=== PATIENT | female | born 1960 | race Caucasian/White ===

== ENCOUNTER → 2017-03-30 | Outpatient (CLI) | payer OTHER ==
[~2017-03-30] MED LIST: CARAFATE 1 GM TA1 GM PO; COZAAR 50 MG TA50 M2 PO; ERGOCALCIF50000 UNIT PO; HYDROCODONE-APA1 TA1 PO; LEVOTHYROXIN0.075 MG PO; MAXZIDE-25 MG1 EACH PO; PEPCID20 MG PO; PERCOCET PO
[2017-03-30 06:35] LABS: HEMATOCRIT 38.5 % (37.0-47.0); HEMOGLOBIN 13.5 gm/dL (12.0-15.0); MCH 31.2 pg (26.0-34.0); MCV 89.4 fL (80.0-100.0); MPV 8.7 fl. (7.2-11.1); RBC 4.31 mil/uL (4.20-5.00); WBC 5.1 thou/uL (4.0-11.0)
[2017-03-30 06:45] LABS: ALBUMIN 3.8 g/dL (3.4-5.0); ALKALINE PHOSPHATASE 115 U/L (46-116); ANION GAP 8 mmol/L (7-16); BUN 18 mg/dL (7-18); CALCIUM 8.8 mg/dL (8.5-10.1); CHLORIDE 104 mmol/L (98-107); CHOLESTEROL 194 mg/dL (<200); CO2 30 mmol/L (21-32); CREATININE 0.8 mg/dL (0.6-1.3); GLUCOSE 105 mg/dL (70-99); HDL CHOLESTEROL 45 mg/dL (>40); LDL CHOLESTEROL 131 mg/dL (<100); POTASSIUM 3.6 mmol/L (3.5-5.1); SGOT 20 U/L (15-37); SGPT 24 U/L (30-65); SODIUM 142 mmol/L (136-145); TC:HDL 4.3 Ratio (Not establshd); TOTAL BILIRUBIN 0.6 mg/dL (<0.1-1.0); TOTAL PROTEIN 7.4 g/dL (6.4-8.2); TRIGLYCERIDE 93 mg/dL (<150); VLDL 19 mg/dL (<40)
[2017-03-30 06:50] LABS: SERUM ASSESSMENT Clear
[2017-03-30 07:01] LABS: URINE BILIRUBIN NEGATIVE (Negative); URINE BLOOD 2+ (Negative); URINE CLARITY CLEAR; URINE COLOR YELLOW; URINE GLUCOSE-RANDOM NEGATIVE (Negative); URINE KETONES NEGATIVE (Negative); URINE LEUKOCYTES NEGATIVE (Negative); URINE NITRITE NEGATIVE (Negative); URINE PROTEIN NEGATIVE (Negative); URINE SPECIFIC GRAVITY 1.015 (1.005-1.030); URINE UROBILINOGEN 0.2 E.U./dl (0.2-1.0)
[2017-03-30 07:22] LABS: BACTERIA 1-9 Few /HPF (None Seen); CASTS None Seen /LPF (None Seen); CRYSTALS None Seen /LPF (None Seen); MUCUS None Seen strn/LPF (None Seen); SQUAMOUS 0-3 Few /LPF (0-3); URINE RBC 3-10 Few /HPF (0-2); URINE WBC 0-5 Rare /HPF (0-5)
== END ==
LOC: M.LAB 06:19
PROVIDERS: Family Medicine
DX: I10 Essential (primary) hypertension (principal); E03.9 Hypothyroidism, unspecified

== ENCOUNTER → 2017-05-18 | Outpatient (CLI) | payer OTHER | LOC: M.RAD 10:32 | DX: Z12.31 Encounter for screening mammogram for malignant neoplasm of breast (principal) ==

== ENCOUNTER → 2017-06-03 | Outpatient (CLI) | payer OTHER | LOC: M.ULTRA 15:45 | DX: E03.9 Hypothyroidism, unspecified (principal); R22.31 Localized swelling, mass and lump, right upper limb ==

== ENCOUNTER → 2017-07-14 | Outpatient (CLI) | payer OTHER ==
[2017-07-14 17:18] LABS: ABSOLUTE BASOPHILS 0.1 thou/uL (0.0-0.2); ABSOLUTE EOSINOPHILS 0.2 thou/uL (0.0-0.7); ABSOLUTE LYMPHOCYTES 2.3 thou/uL (0.8-5.3); ABSOLUTE MONOCYTES 0.5 thou/uL (0.0-1.2); ABSOLUTE NEUTROPHILS 3.8 thou/uL (1.6-8.1); BASOPHILS 0.8 %; EOSINOPHILS 2.7 %; HEMATOCRIT 38.6 % (37.0-47.0); HEMOGLOBIN 13.4 gm/dL (12.0-15.0); LYMPHOCYTES 33.9 %; MCH 31.7 pg (26.0-34.0); MCHC 34.8 g/dL (28.0-37.0); MONOCYTES 6.7 %; MPV 8.5 fl. (7.2-11.1); NUCLEATED RBCS 0 /100WBC; PLATELET COUNT* 256 thou/uL (150-400); POLYS 55.9 %; RBC 4.24 mil/uL (4.20-5.00); RDW-CV 12.5 % (10.5-14.5); WBC 6.8 thou/uL (4.0-11.0)
[2017-07-14 17:38] LABS: APTT 27.4 Seconds (25.0-31.3); PROTIME 9.5 Seconds (9.20-11.50)
== END ==
LOC: M.LAB 17:01
PROVIDERS: Family Medicine
DX: R58 Hemorrhage, not elsewhere classified (principal); E03.9 Hypothyroidism, unspecified; I10 Essential (primary) hypertension; E78.5 Hyperlipidemia, unspecified

== ENCOUNTER → 2017-08-19 | Outpatient (CLI) | payer OTHER ==
[2017-08-19 09:05] LABS: % SATURATION 36 % (20-39); IRON 103 ug/dL (50-175)
== END ==
LOC: M.LAB 08:01
PROVIDERS: Family Medicine
DX: F50.89 Other specified eating disorder (principal)

== ENCOUNTER 2017-08-22 22:08 | Emergency (ER) | payer OTHER ==
[~2017-08-22] VITALS: Ht 167.6 cm; Wt 99.9 kg
[~2017-08-22 22:08] MED LIST changes: -CARAFATE 1 GM TA1 GM PO; -ERGOCALCIF50000 UNIT PO; -PEPCID20 MG PO
[2017-08-22] MEDS ORDERED: ERGOCALCIF50000 UNIT PO (22:19)
[2017-08-22 22:38] LABS: ABSOLUTE BASOPHILS 0.1 thou/uL (0.0-0.2); ABSOLUTE EOSINOPHILS 0.2 thou/uL (0.0-0.7); ABSOLUTE LYMPHOCYTES 2.7 thou/uL (0.8-5.3); ABSOLUTE MONOCYTES 0.5 thou/uL (0.0-1.2); EOSINOPHILS 2.9 %; HEMATOCRIT 35.7 % (37.0-47.0); HEMOGLOBIN 12.4 gm/dL (12.0-15.0); MCH 31.8 pg (26.0-34.0); MCHC 34.8 g/dL (28.0-37.0); MCV 91.3 fL (80.0-100.0); MONOCYTES 7.5 %; MPV 8.2 fl. (7.2-11.1); NUCLEATED RBCS 0 /100WBC; PLATELET COUNT* 225 thou/uL (150-400); POLYS 46.6 %; RBC 3.91 mil/uL (4.20-5.00); RDW-CV 12.3 % (10.5-14.5); WBC 6.3 thou/uL (4.0-11.0)
[2017-08-22 22:46] LABS: ANION GAP 10 mmol/L (7-16); BUN 22 mg/dL (7-18); CHLORIDE 105 mmol/L (98-107); CO2 28 mmol/L (21-32); CREATININE 0.8 mg/dL (0.6-1.3); GLUCOSE 102 mg/dL (70-99); POTASSIUM 3.7 mmol/L (3.5-5.1); SODIUM 143 mmol/L (136-145)
[2017-08-22 22:49] LABS: PROTIME 9.8 Seconds (9.20-11.50)
[2017-08-22 22:56] LABS: ALBUMIN 3.5 g/dL (3.4-5.0); ALKALINE PHOSPHATASE 115 U/L (46-116); LIPASE 161 U/L (73-393); NT-PRO BRAIN NAT PEPTIDE 86 pg/mL (<300); SGOT 19 U/L (15-37); SGPT 28 U/L (30-65); TOTAL BILIRUBIN 0.3 mg/dL (<0.1-1.0); TOTAL PROTEIN 7.2 g/dL (6.4-8.2); TROPONIN-I LEVEL <0.06 ng/mL (<0.06)
[2017-08-22] MEDS ORDERED: CARAFATE 1 GM TA1 GM PO (23:52)
[2017-08-22] MEDS ORDERED: PEPCID20 MG PO (23:52)
[2017-08-23 00:01] VITALS: BP 138/84
--- NOTE | 2017-08-23 10:40 | EKG ---
[place] [address] ELECTROCARDIOGRAM REPORT Name: CHAYO HUI [id number] Admission: 08/22/17 Attend Phys: Discharge: 08/23/17 Date of : 60 Report #: [id number] THIS REPORT FOR: //name// [facility] ED Test Date: 2017-08-22 Test Time: 22:11:53 Pat Name: CHAYO HUI Department: Room: Gender: F Fermentologist: LEONA : 1960 Requested By: Airam Mcintosh Order Number: [id number] MD: Wilfrid Kumar Measurements Intervals [place] Rate: 81 P: 18 MO: 138 QRS: -29 QRSD: 100 T: 25 QT: 393 QTc: 457 Interpretive Statements Sinus rhythm Borderline left axis deviation Abnormal R-wave progression, late transition Compared to ECG 10/04/2012 11:34:44 Sinus bradycardia no longer present Electronically Signed On 08-23-2017 10:39:45 CDT by Wilfrid Kumar [email or web address] <ELECTRONICALLY SIGNED> By: Wilfrid Kumar MD, [facility] 08/23/17 1039 10 10 Wilfrid Kmuar MD, [facility] /EPI
== END 2017-08-23 00:01 | disposition home or self-care (01) ==
LOC: M.ERS 22:08
PROVIDERS: Emergency Medicine
DX: R07.89 Other chest pain (principal); I10 Essential (primary) hypertension; E03.9 Hypothyroidism, unspecified; Z88.1 Allergy status to other antibiotic agents; Z88.5 Allergy status to narcotic agent; Z88.8 Allergy status to other drugs, medicaments and biological substances

== ENCOUNTER → 2017-08-26 | Outpatient (CLI) | payer OTHER ==
[~2017-08-26] MED LIST changes: +CARAFATE 1 GM TA1 GM PO; +ERGOCALCIF50000 UNIT PO; +PEPCID20 MG PO
== END ==
LOC: M.ULTRA 06:45
DX: R10.11 Right upper quadrant pain (principal); E11.9 Type 2 diabetes mellitus without complications; I10 Essential (primary) hypertension; Z88.0 Allergy status to penicillin

== ENCOUNTER → 2017-09-09 | Outpatient (CLI) | payer OTHER | LOC: M.NUC 09-02 13:00 | DX: K82.9 Disease of gallbladder, unspecified (principal); R10.11 Right upper quadrant pain ==

== ENCOUNTER → 2017-09-16 | Outpatient (CLI) | payer OTHER | LOC: M.LAB 17:00 | DX: M35.00 Sjogren syndrome, unspecified (principal); I10 Essential (primary) hypertension; E03.9 Hypothyroidism, unspecified ==

== ENCOUNTER → 2017-11-12 | Outpatient (CLI) | payer OTHER | END | disposition home or self-care (01) | LOC: M.RAD 19:31 | DX: S52.121A Displaced fracture of head of right radius, initial encounter for closed fracture (principal); M19.011 Primary osteoarthritis, right shoulder; X58.XXXA Exposure to other specified factors, initial encounter; Y93.9 Activity, unspecified; Y92.89 Other specified places as the place of occurrence of the external cause; Y99.9 Unspecified external cause status ==

== ENCOUNTER → 2017-11-21 | Outpatient (CLI) | payer OTHER | LOC: M.RAD 14:42 | DX: M17.11 Unilateral primary osteoarthritis, right knee (principal); I10 Essential (primary) hypertension; E03.9 Hypothyroidism, unspecified; S52.121A Displaced fracture of head of right radius, initial encounter for closed fracture; W19.XXXA Unspecified fall, initial encounter; X58.XXXA Exposure to other specified factors, initial encounter; Y93.89 Activity, other specified; Y92.89 Other specified places as the place of occurrence of the external cause; Y99.8 Other external cause status ==

== ENCOUNTER → 2017-11-29 | Outpatient (CLI) | payer OTHER ==
[2017-11-29 13:55] LABS: HEMATOCRIT 38.9 % (37.0-47.0); HEMOGLOBIN 13.4 gm/dL (12.0-15.0); MCH 31.3 pg (26.0-34.0); MCHC 34.4 g/dL (28.0-37.0); MCV 90.9 fL (80.0-100.0); MPV 8.4 fl. (7.2-11.1); RBC 4.28 mil/uL (4.20-5.00); RDW-CV 12.3 % (10.5-14.5); WBC 9.5 thou/uL (4.0-11.0)
[2017-11-29 14:01] LABS: PROTIME 10.2 Seconds (9.20-11.50)
[2017-11-29 14:34] LABS: ALBUMIN 4.1 g/dL (3.4-5.0); CALCIUM 9.2 mg/dL (8.5-10.1); CREATININE 0.9 mg/dL (0.6-1.3); POTASSIUM 4.2 mmol/L (3.5-5.1); TOTAL BILIRUBIN 0.5 mg/dL (<0.1-1.0); TOTAL PROTEIN 7.3 g/dL (6.4-8.2)
== END ==
LOC: M.CT 13:30
PROVIDERS: Nurse Practitioner Family
DX: R10.30 Lower abdominal pain, unspecified (principal); I10 Essential (primary) hypertension; E03.9 Hypothyroidism, unspecified

== ENCOUNTER → 2017-11-30 | Outpatient (CLI) | payer OTHER | LOC: M.LAB 07:56 | DX: K92.1 Melena (principal); R10.9 Unspecified abdominal pain; I10 Essential (primary) hypertension; E03.9 Hypothyroidism, unspecified; Z88.8 Allergy status to other drugs, medicaments and biological substances ==

== ENCOUNTER → 2017-12-10 | Outpatient (CLI) | payer OTHER | LOC: M.RAD 14:10 | DX: S52.121A Displaced fracture of head of right radius, initial encounter for closed fracture (principal); X58.XXXA Exposure to other specified factors, initial encounter; Y93.89 Activity, other specified; Y92.89 Other specified places as the place of occurrence of the external cause; Y99.8 Other external cause status ==

== ENCOUNTER → 2018-02-19 | Outpatient (CLI) | payer OTHER ==
[2018-02-19 10:31] LABS: ALBUMIN 3.5 g/dL (3.4-5.0); ALKALINE PHOSPHATASE 111 U/L (46-116); ANION GAP 8 mmol/L (7-16); BUN 17 mg/dL (7-18); CALCIUM 8.7 mg/dL (8.5-10.1); CHLORIDE 103 mmol/L (98-107); CHOLESTEROL 214 mg/dL (<200); CO2 31 mmol/L (21-32); CREATININE 0.7 mg/dL (0.6-1.3); GLUCOSE 95 mg/dL (70-99); HDL CHOLESTEROL 54 mg/dL (>40); LDL CHOLESTEROL 138 mg/dL (<100); SGOT 20 U/L (15-37); SGPT 26 U/L (30-65); SODIUM 142 mmol/L (136-145); TOTAL BILIRUBIN 0.6 mg/dL (<0.1-1.0); TOTAL PROTEIN 7.3 g/dL (6.4-8.2); TRIGLYCERIDE 113 mg/dL (<150); VLDL 23 mg/dL (<40)
[2018-02-19 10:53] LABS: SERUM ASSESSMENT Clear
== END ==
LOC: M.LAB 07:35
PROVIDERS: Family Medicine
DX: I10 Essential (primary) hypertension (principal); E03.9 Hypothyroidism, unspecified

== ENCOUNTER → 2018-05-05 | Outpatient (CLI) | payer OTHER ==
[2018-05-05 11:21] LABS: URINE BILIRUBIN NEGATIVE (Negative); URINE BLOOD 1+ (Negative); URINE CLARITY CLEAR; URINE COLOR YELLOW; URINE GLUCOSE-RANDOM NEGATIVE (Negative); URINE KETONES NEGATIVE (Negative); URINE LEUKOCYTES NEGATIVE (Negative); URINE NITRITE NEGATIVE (Negative); URINE PROTEIN NEGATIVE (Negative); URINE UROBILINOGEN 0.2 E.U./dl (0.2-1.0)
[2018-05-05 11:25] LABS: ABSOLUTE BASOPHILS 0.1 thou/uL (0.0-0.2); ABSOLUTE EOSINOPHILS 0.2 thou/uL (0.0-0.7); ABSOLUTE LYMPHOCYTES 2.1 thou/uL (0.8-5.3); ABSOLUTE MONOCYTES 0.4 thou/uL (0.0-1.2); ABSOLUTE NEUTROPHILS 4.1 thou/uL (1.6-8.1); BASOPHILS 1.1 %; EOSINOPHILS 2.7 %; HEMATOCRIT 38.9 % (37.0-47.0); HEMOGLOBIN 13.6 gm/dL (12.0-15.0); LYMPHOCYTES 30.8 %; MCH 31.3 pg (26.0-34.0); MCHC 34.8 g/dL (28.0-37.0); MCV 89.9 fL (80.0-100.0); MONOCYTES 5.9 %; MPV 8.5 fl. (7.2-11.1); NUCLEATED RBCS 0 /100WBC; PLATELET COUNT* 263 thou/uL (150-400); POLYS 59.5 %; RBC 4.33 mil/uL (4.20-5.00); RDW-CV 13.2 % (10.5-14.5); WBC 6.9 thou/uL (4.0-11.0)
[2018-05-05 11:29] LABS: SQUAMOUS 0-3 Few /LPF (0-3)
[2018-05-05 11:30] LABS: BACTERIA 1-9 Few /HPF (None Seen); CASTS None Seen /LPF (None Seen); CRYSTALS None Seen /LPF (None Seen); MUCUS 0-3 Light strn/LPF (None Seen); URINE RBC 3-10 Few /HPF (0-2); URINE WBC 0-5 Rare /HPF (0-5)
[2018-05-05 11:39] LABS: ALBUMIN 4.1 g/dL (3.4-5.0); ALKALINE PHOSPHATASE 109 U/L (46-116); ANION GAP 7 mmol/L (7-16); BUN 17 mg/dL (7-18); CALCIUM 9.8 mg/dL (8.5-10.1); CHLORIDE 101 mmol/L (98-107); CHOLESTEROL 262 mg/dL (<200); CO2 31 mmol/L (21-32); CREATININE 0.9 mg/dL (0.6-1.3); GLUCOSE 99 mg/dL (70-99); HDL CHOLESTEROL 57 mg/dL (>40); LDL CHOLESTEROL 168 mg/dL (<100); POTASSIUM 3.2 mmol/L (3.5-5.1); SGOT 20 U/L (15-37); SGPT 24 U/L (30-65); SODIUM 139 mmol/L (136-145); TC:HDL 4.6 Ratio (Not establshd); TOTAL BILIRUBIN 0.7 mg/dL (<0.1-1.0); TOTAL PROTEIN 8.1 g/dL (6.4-8.2); TRIGLYCERIDE 189 mg/dL (<150); VLDL 38 mg/dL (<40)
[2018-05-05 11:42] LABS: SERUM ASSESSMENT Clear
== END ==
LOC: M.LAB 10:54
PROVIDERS: Family Medicine
DX: I10 Essential (primary) hypertension (principal); E03.9 Hypothyroidism, unspecified; Z68.37 Body mass index [BMI] 37.0-37.9, adult

== ENCOUNTER → 2018-05-09 | Outpatient (CLI) | payer OTHER | LOC: M.MRI 07:49 | DX: M19.011 Primary osteoarthritis, right shoulder (principal); M25.411 Effusion, right shoulder; M24.10 Other articular cartilage disorders, unspecified site ==

== ENCOUNTER → 2018-06-02 | Outpatient (CLI) | payer OTHER | LOC: M.RAD 10:53 | DX: Z12.31 Encounter for screening mammogram for malignant neoplasm of breast (principal) ==

== ENCOUNTER → 2018-06-13 | Outpatient (CLI) | payer OTHER ==
[2018-06-13 11:49] LABS: ABSOLUTE BASOPHILS 0.1 thou/uL (0.0-0.2); ABSOLUTE EOSINOPHILS 0.1 thou/uL (0.0-0.7); ABSOLUTE LYMPHOCYTES 1.5 thou/uL (0.8-5.3); ABSOLUTE MONOCYTES 0.4 thou/uL (0.0-1.2); ABSOLUTE NEUTROPHILS 3.5 thou/uL (1.6-8.1); EOSINOPHILS 2.1 %; HEMATOCRIT 36.5 % (37.0-47.0); HEMOGLOBIN 12.7 gm/dL (12.0-15.0); LYMPHOCYTES 27.1 %; MCH 31.6 pg (26.0-34.0); MCHC 34.8 g/dL (28.0-37.0); MCV 90.8 fL (80.0-100.0); MONOCYTES 6.5 %; MPV 8.1 fl. (7.2-11.1); NUCLEATED RBCS 0 /100WBC; PLATELET COUNT* 222 thou/uL (150-400); POLYS 63.3 %; RBC 4.02 mil/uL (4.20-5.00); RDW-CV 12.3 % (10.5-14.5); WBC 5.5 thou/uL (4.0-11.0)
[2018-06-13 12:02] LABS: ALBUMIN 3.6 g/dL (3.4-5.0); CALCIUM 9.4 mg/dL (8.5-10.1); POTASSIUM 3.6 mmol/L (3.5-5.1); TOTAL BILIRUBIN 0.7 mg/dL (<0.1-1.0); TOTAL PROTEIN 7.2 g/dL (6.4-8.2)
== END ==
LOC: M.LAB 10:45 → M.CT 11:00 → M.LAB 11:33
PROVIDERS: Family Medicine
DX: R10.9 Unspecified abdominal pain (principal); R31.29 Other microscopic hematuria; Z88.8 Allergy status to other drugs, medicaments and biological substances; Z88.5 Allergy status to narcotic agent; Z88.1 Allergy status to other antibiotic agents

== ENCOUNTER → 2018-06-22 | Outpatient (CLI) | payer OTHER | LOC: M.LAB 05:02 | DX: E87.6 Hypokalemia (principal) ==

== ENCOUNTER → 2018-07-14 | Outpatient (CLI) | payer OTHER | LOC: M.RAD 10:41 | DX: M25.761 Osteophyte, right knee (principal); M25.762 Osteophyte, left knee ==

== ENCOUNTER → 2018-08-04 | Outpatient (CLI) | payer OTHER ==
[2018-08-04 07:24] LABS: HEMATOCRIT 38.1 % (37.0-47.0); HEMOGLOBIN 13.3 gm/dL (12.0-15.0); MCH 31.2 pg (26.0-34.0); MCHC 34.9 g/dL (28.0-37.0); MCV 89.5 fL (80.0-100.0); MPV 8.2 fl. (7.2-11.1); RBC 4.26 mil/uL (4.20-5.00); RDW-CV 12.6 % (10.5-14.5); WBC 5.6 thou/uL (4.0-11.0)
== END ==
LOC: M.MRI 07:00
PROVIDERS: Family Medicine
DX: M50.122 Cervical disc disorder at C5-C6 level with radiculopathy (principal); M25.78 Osteophyte, vertebrae; M48.02 Spinal stenosis, cervical region; E03.9 Hypothyroidism, unspecified; R53.83 Other fatigue; A69.20 Lyme disease, unspecified

== ENCOUNTER → 2018-08-30 | Outpatient (CLI) | payer OTHER ==
--- NOTE | 2018-09-11 09:00 | SLEEP ---
[address] [address] SLEEP STUDY REPORT Name: CHAYO HUI [id number] Admission: 08/30/18 Attend Phys: Renetta Bustamante DO Discharge: Date of : 60 Report #: [id number] THIS REPORT FOR: //name// CC: Renetta Bustamante This study has been reviewed in its entirety by a board certified sleep specialist DATE OF SERVICE: 08/30/2018 SLEEP STUDY ATTENDING PHYSICIAN: Dr. Renetta Bustamante. The patient is 58 years old who weighs 230 pounds with a BMI of 37.1. The patient's [place] score is 18. The patient returned to [facility] for CPAP titration study. Results of the diagnostic study were not available at the time of dictation. During the night of study, the patient spent 420 minutes in bed and slept for 294 minutes with a low sleep efficiency of 70%. Sleep latency was 34 minutes with a REM latency of 130.6 minutes. Overall, sleep architecture showed normal stage 1 and stage 2 sleep, increased N3 sleep, which was 30% of the total sleep time and normal REM sleep. EKG monitoring revealed an average heart rate of 63 beats per minute. No sustained arrhythmias observed. PLMs were seen at an index of 24 per hour and 5 per hour caused EEG arousals. The patient was started on CPAP at 7 cm water and titrated up to 17 cm of water. At the final pressure, the patient slept for 149 minutes. The patient had 51 minutes of REM sleep. The patient had supine sleep as well. The patient's AHI was reduced to 2.8 per hour and oxygen saturations remained above 88% with few spot desaturations in the high 80s. IMPRESSION: 1. Sleep apnea diagnosed previously. 2. Moderate PLMs. RECOMMENDATIONS: 1. CPAP at 17 cm water completely eliminated the patient's sleep apnea and should be used on a nightly basis. 2. Follow up in 4-6 weeks to assess compliance with CPAP [place] [address] SLEEP STUDY REPORT Name: CHAYO HUI Room: [facility]#: [id number] Admission: 08/30/18 Attend Phys: Renetta Busatmante DO Discharge: Date of : 60 Report #: [id number] 3. Weight loss is strongly advised. 4. Avoid CHILLER TENDER depressants. 5. Cautioned regarding driving until symptoms of sleep apnea resolve with the use of CPAP. 6. PLMs do not need to be treated unless the patient has symptoms of restless legs during the day. <ELECTRONICALLY SIGNED> By: Chema Griffin MD 09/11/18 0900 1344 1421Adenis Griffin MD /nt
== END ==
LOC: M.SLEEPLAB 20:02
DX: G47.30 Sleep apnea, unspecified (principal)

== ENCOUNTER → 2018-11-07 | Outpatient (CLI) | payer OTHER ==
[2018-11-07 07:04] LABS: ABSOLUTE EOSINOPHILS 0.1 thou/uL (0.0-0.7); ABSOLUTE LYMPHOCYTES 1.6 thou/uL (0.8-5.3); ABSOLUTE MONOCYTES 0.3 thou/uL (0.0-1.2); ABSOLUTE NEUTROPHILS 2.9 thou/uL (1.6-8.1); BASOPHILS 0.9 %; EOSINOPHILS 2.2 %; HEMATOCRIT 36.5 % (37.0-47.0); HEMOGLOBIN 12.7 gm/dL (12.0-15.0); LYMPHOCYTES 31.9 %; MCH 31.7 pg (26.0-34.0); MCHC 34.8 g/dL (28.0-37.0); MCV 91.2 fL (80.0-100.0); MONOCYTES 6.3 %; MPV 8.3 fl. (7.2-11.1); NUCLEATED RBCS 0 /100WBC; PLATELET COUNT* 237 thou/uL (150-400); POLYS 58.7 %; RBC 4.01 mil/uL (4.20-5.00); RDW-CV 13.1 % (10.5-14.5); WBC 4.9 thou/uL (4.0-11.0)
[2018-11-07 07:11] LABS: URINE BILIRUBIN NEGATIVE (Negative); URINE BLOOD 1+ (Negative); URINE CLARITY CLEAR; URINE COLOR YELLOW; URINE GLUCOSE-RANDOM NEGATIVE (Negative); URINE KETONES NEGATIVE (Negative); URINE LEUKOCYTES NEGATIVE (Negative); URINE NITRITE NEGATIVE (Negative); URINE PROTEIN NEGATIVE (Negative); URINE UROBILINOGEN 0.2 E.U./dl (0.2-1.0)
[2018-11-07 07:17] LABS: ALBUMIN 3.8 g/dL (3.4-5.0); ALKALINE PHOSPHATASE 117 U/L (46-116); ANION GAP 7 mmol/L (7-16); BUN 10 mg/dL (7-18); CALCIUM 9.1 mg/dL (8.5-10.1); CHLORIDE 106 mmol/L (98-107); CHOLESTEROL 207 mg/dL (<200); CO2 29 mmol/L (21-32); CREATININE 0.8 mg/dL (0.6-1.3); GLUCOSE 95 mg/dL (70-99); HDL CHOLESTEROL 40 mg/dL (>40); LDL CHOLESTEROL 125 mg/dL (<100); POTASSIUM 3.7 mmol/L (3.5-5.1); SERUM ASSESSMENT Clear; SGOT 20 U/L (15-37); SGPT 28 U/L (30-65); SODIUM 142 mmol/L (136-145); TC:HDL 5.2 Ratio (Not establshd); TOTAL BILIRUBIN 0.7 mg/dL (<0.1-1.0); TOTAL PROTEIN 7.4 g/dL (6.4-8.2); TRIGLYCERIDE 212 mg/dL (<150); VLDL 42 mg/dL (<40)
[2018-11-07 07:28] LABS: BACTERIA 1-9 Few /HPF (None Seen); CASTS None Seen /LPF (None Seen); CRYSTALS None Seen /LPF (None Seen); MUCUS None Seen strn/LPF (None Seen); SQUAMOUS 0-3 Few /LPF (0-3); URINE RBC 3-10 Few /HPF (0-2); URINE WBC 0-5 Rare /HPF (0-5)
== END ==
LOC: M.LAB 05:22
PROVIDERS: Anesthesiology
DX: E87.6 Hypokalemia (principal)

== ENCOUNTER → 2019-03-23 | Outpatient (CLI) | payer OTHER ==
[2019-03-23 11:16] LABS: ABSOLUTE EOSINOPHILS 0.1 thou/uL (0.0-0.7); ABSOLUTE LYMPHOCYTES 1.7 thou/uL (0.8-5.3); ABSOLUTE MONOCYTES 0.5 thou/uL (0.0-1.2); ABSOLUTE NEUTROPHILS 4.9 thou/uL (1.6-8.1); BASOPHILS 0.5 %; EOSINOPHILS 1.4 %; HEMATOCRIT 38.4 % (37.0-47.0); HEMOGLOBIN 13.4 gm/dL (12.0-15.0); LYMPHOCYTES 23.5 %; MCV 88.7 fL (80.0-100.0); MONOCYTES 6.9 %; MPV 8.2 fl. (7.2-11.1); NUCLEATED RBCS 0 /100WBC; PLATELET COUNT* 269 thou/uL (150-400); POLYS 67.7 %; RBC 4.33 mil/uL (4.20-5.00); RDW-CV 12.7 % (10.5-14.5); WBC 7.2 thou/uL (4.0-11.0)
[2019-03-23 11:20] LABS: URINE BILIRUBIN NEGATIVE (Negative); URINE BLOOD TRACE (Negative); URINE CLARITY CLEAR; URINE COLOR YELLOW; URINE GLUCOSE-RANDOM NEGATIVE (Negative); URINE KETONES NEGATIVE (Negative); URINE LEUKOCYTES NEGATIVE (Negative); URINE NITRITE NEGATIVE (Negative); URINE PROTEIN NEGATIVE (Negative); URINE UROBILINOGEN 0.2 E.U./dl (0.2-1.0)
[2019-03-23 11:31] LABS: ALKALINE PHOSPHATASE 131 U/L (46-116); ANION GAP 8 mmol/L (7-16); BUN 22 mg/dL (7-18); CALCIUM 9.3 mg/dL (8.5-10.1); CHLORIDE 104 mmol/L (98-107); CHOLESTEROL 236 mg/dL (<200); CO2 30 mmol/L (21-32); CREATININE 0.9 mg/dL (0.6-1.3); GLUCOSE 90 mg/dL (70-99); HDL CHOLESTEROL 51 mg/dL (>40); LDL CHOLESTEROL 161 mg/dL (<100); POTASSIUM 3.8 mmol/L (3.5-5.1); SERUM ASSESSMENT Clear; SGOT 20 U/L (15-37); SGPT 47 U/L (30-65); SODIUM 142 mmol/L (136-145); TC:HDL 4.6 Ratio (Not establshd); TOTAL BILIRUBIN 0.9 mg/dL (<0.1-1.0); TOTAL PROTEIN 7.9 g/dL (6.4-8.2); TRIGLYCERIDE 123 mg/dL (<150); VLDL 25 mg/dL (<40)
== END ==
LOC: M.RAD 03-10 15:52
PROVIDERS: Family Medicine
DX: N91.2 Amenorrhea, unspecified (principal); I10 Essential (primary) hypertension; E03.9 Hypothyroidism, unspecified; Z78.0 Asymptomatic menopausal state

== ENCOUNTER → 2019-03-30 | Outpatient (CLI) | payer OTHER | LOC: M.RAD 09:44 | DX: M47.812 Spondylosis without myelopathy or radiculopathy, cervical region (principal); M85.88 Other specified disorders of bone density and structure, other site; Z88.8 Allergy status to other drugs, medicaments and biological substances ==

== ENCOUNTER → 2019-05-11 | Outpatient (CLI) | payer OTHER | LOC: M.LAB 09:21 | DX: E66.09 Other obesity due to excess calories (principal); Z68.34 Body mass index [BMI] 34.0-34.9, adult ==

== ENCOUNTER → 2019-07-25 | Outpatient (CLI) | payer OTHER | LOC: M.RAD 12:39 | DX: Z12.31 Encounter for screening mammogram for malignant neoplasm of breast (principal) ==

== ENCOUNTER → 2019-08-14 | Outpatient (CLI) | payer OTHER ==
[~2019-08-14] MED LIST changes: +DIAZEPAM 5 MG5 M1 PO; +LORCET 5-325 M1 EACH PO; +NORVASC 2.5 MG2.5 M1 PO; +OMEPRAZOLE 20 M20 M1 PO
[2019-08-14 09:03] LABS: ABSOLUTE EOSINOPHILS 0.1 thou/uL (0.0-0.7); ABSOLUTE LYMPHOCYTES 1.4 thou/uL (0.8-5.3); ABSOLUTE MONOCYTES 0.3 thou/uL (0.0-1.2); ABSOLUTE NEUTROPHILS 2.9 thou/uL (1.6-8.1); BASOPHILS 0.9 %; EOSINOPHILS 2.2 %; HEMATOCRIT 38.5 % (37.0-47.0); HEMOGLOBIN 13.7 gm/dL (12.0-15.0); LYMPHOCYTES 29.7 %; MCH 31.9 pg (26.0-34.0); MCHC 35.6 g/dL (28.0-37.0); MCV 89.6 fL (80.0-100.0); MONOCYTES 6.8 %; MPV 8.2 fl. (7.2-11.1); NUCLEATED RBCS 0 /100WBC; PLATELET COUNT* 229 thou/uL (150-400); POLYS 60.4 %; RBC 4.29 mil/uL (4.20-5.00); RDW-CV 12.5 % (10.5-14.5); WBC 4.8 thou/uL (4.0-11.0)
[2019-08-14 09:11] LABS: ALBUMIN 3.6 g/dL (3.4-5.0); ALKALINE PHOSPHATASE 114 U/L (46-116); ANION GAP 8 mmol/L (7-16); BUN 17 mg/dL (7-18); CALCIUM 8.9 mg/dL (8.5-10.1); CHLORIDE 105 mmol/L (98-107); CHOLESTEROL 221 mg/dL (<200); CO2 29 mmol/L (21-32); CREATININE 0.9 mg/dL (0.6-1.3); GLUCOSE 98 mg/dL (70-99); HDL CHOLESTEROL 56 mg/dL (>40); LDL CHOLESTEROL 146 mg/dL (<100); POTASSIUM 3.9 mmol/L (3.5-5.1); SGOT 22 U/L (15-37); SGPT 35 U/L (30-65); SODIUM 142 mmol/L (136-145); TC:HDL 3.9 Ratio (Not establshd); TOTAL BILIRUBIN 0.7 mg/dL (<0.1-1.0); TOTAL PROTEIN 7.5 g/dL (6.4-8.2); TRIGLYCERIDE 95 mg/dL (<150); VLDL 19 mg/dL (<40)
[2019-08-14 09:13] LABS: SERUM ASSESSMENT Clear
[2019-08-14 09:20] LABS: URINE BILIRUBIN NEGATIVE (Negative); URINE BLOOD TRACE (Negative); URINE CLARITY CLEAR; URINE COLOR YELLOW; URINE GLUCOSE-RANDOM NEGATIVE (Negative); URINE KETONES NEGATIVE (Negative); URINE LEUKOCYTES NEGATIVE (Negative); URINE NITRITE NEGATIVE (Negative); URINE PROTEIN NEGATIVE (Negative); URINE SPECIFIC GRAVITY 1.015 (1.005-1.030); URINE UROBILINOGEN 0.2 E.U./dl (0.2-1.0)
== END ==
LOC: M.LAB 08:23
PROVIDERS: ATTEND Orthopaedic Surgery
DX: Z11.59 Encounter for screening for other viral diseases (principal); E87.6 Hypokalemia; I10 Essential (primary) hypertension; E03.9 Hypothyroidism, unspecified

== ENCOUNTER 2019-09-07 22:22 | Inpatient (IN) | payer OTHER ==
[~2019-09-07] VITALS: Ht 167.6 cm; Wt 104.3 kg
[~2019-09-07 22:22] MED LIST changes: -COZAAR 50 MG TA50 M2 PO; +COZAAR 50 MG TA50 MG PO; -DIAZEPAM 5 MG5 M1 PO; -LEVOTHYROXIN0.075 MG PO; -LORCET 5-325 M1 EACH PO; -NORVASC 2.5 MG2.5 M1 PO; -OMEPRAZOLE 20 M20 M1 PO; +SYNTHROID75 MCG PO
[2019-09-07 22:26] VITALS: BP 162/132
[2019-09-07] MEDS ORDERED: OMEPRAZOLE 20 M20 M1 PO (22:33)
[2019-09-07] MEDS ORDERED: NORVASC 2.5 MG2.5 M1 PO (22:34)
[2019-09-07] MEDS ORDERED: LORCET 5-325 M1 EACH PO (22:36)
[2019-09-07] MEDS ORDERED: DIAZEPAM 5 MG5 M1 PO (22:37)
[2019-09-07 22:49] LABS: HEMATOCRIT 36.7 % (37.0-47.0); HEMOGLOBIN 12.9 gm/dL (12.0-15.0); MCH 31.7 pg (26.0-34.0); MCHC 35.1 g/dL (28.0-37.0); MCV 90.2 fL (80.0-100.0); MPV 8.1 fl. (7.2-11.1); NUCLEATED RBCS 0 /100WBC; PLATELET COUNT* 276 thou/uL (150-400); RBC 4.07 mil/uL (4.20-5.00); WBC 15.4 thou/uL (4.0-11.0)
[2019-09-07 22:56] LABS: CALCIUM 8.1 mg/dL (8.5-10.1); CREATININE 1.1 mg/dL (0.6-1.3); POTASSIUM 3.4 mmol/L (3.5-5.1)
[2019-09-07 23:00] LABS: ALBUMIN 3.8 g/dL (3.4-5.0); TOTAL BILIRUBIN 0.7 mg/dL (<0.1-1.0); TOTAL PROTEIN 7.3 g/dL (6.4-8.2)
[2019-09-07 23:14] LABS: ABSOLUTE EOSINOPHILS 0.2 thou/uL (0.0-0.7); ABSOLUTE LYMPHOCYTES 1.4 thou/uL (0.8-5.3); ABSOLUTE MONOCYTES 0.6 thou/uL (0.0-1.2); ABSOLUTE NEUTROPHILS 13.2 thou/uL (1.6-8.1); PLATELET ESTIMATE ADEQUATE
[2019-09-08 02:16] LABS: BF RBC 7614 /mm3; TOTAL CELL COUNT 53822 /mm3
[2019-09-08 02:19] LABS: CLARITY HAZY; TOTAL VOLUME 20 ml
[2019-09-08 02:20] LABS: SOURCE SYNOVIAL
[2019-09-08 02:25] VITALS: BP 132/67
[2019-09-08 02:26] VITALS: BP 137/67
[2019-09-08 03:36] LABS: BF LYMPHOCYTES 2 %; BF MONOCYTES 5 %; BF POLYS 93 %
--- NOTE | 2019-09-08 05:14 | NUR ---
PT FROM ER 0220. ELEVATED RIGHT LEG AND REPOSITIONED PATIENT FOR COMFORT. PICTURE OF KNEE IN CHART. SHE HAS ZELAYA DUE TO IMMOBILITY. SHE STATES SHE WAS ABLE TO GET UP AND MOVE AROUND THE DAY BEFORE. NOW SHE IS NOT ABLE TO WALK WITHOUT SEVERE PAIN. ALERT AND ORIENTED. HOURLY ROUNDS MADE PATIENT IS SLEEPING WELL AND COMFORTABLE. DR MORAES CONSULTED FOR AM. WILL CONTINUE TO FOLLOW PLAN OF CARE.
[2019-09-08 08:00] VITALS: BP 139/70
--- NOTE | 2019-09-08 13:14 | CON ---
[address] [address] CONSULTATION Name: EZCHAYO Sara Room: [address] IN M.R.#: [id number] Admission: 09/08/19 Attend Phys: Chuck Crooks Discharge: Date of : 60 Report #: [id number] THIS REPORT FOR: //name// cc: Rodrigo Andujar Steve T. DO ~ THIS REPORT FOR: //name// CC: Chuck Campbell DATE OF SERVICE: 09/08/2019 INFECTIOUS DISEASE CONSULTATION ATTENDING PHYSICIAN: Chuck Matias MD REASON FOR EVALUATION: Right knee septic arthritis. HISTORY OF PRESENT ILLNESS: Chart reviewed, patient examined. This is a 59-year-old woman with known history of hypertension, hypothyroidism and osteoarthritis, who underwent a right knee arthroscopic procedure on 08/16, generally had been doing fairly well, although it continues to drain throughout the course of the postoperative period. Over the course of the last 24 hours prior to admission, had increasing drainage with purulence, severe pain associated with it became impossible to ambulate or even move her leg. She denies any systemic illness. No fevers or chills, although did have some tremulousness and sweats. She felt attributed to the pain. Denied any anorexia. No pulmonary or gastrointestinal related complaints. She was evaluated initially, placed Steri-Strips on the draining site, treated with cephalexin for which she took 2 doses; however, it continued to worsen. She was reevaluated and subsequently admitted. She is seen preop, pending I and D, did have aspiration of the sites with 53,822 white cells, 93% polys. COVID testing was negative. Lactic acid was 2.2. Blood cultures sterile thus far. ALLERGIES: CODEINE, ERYTHROMYCIN, CLARITHROMYCIN, DAYPRO, DULOXETINE, PREGABALIN. CURRENT MEDICATIONS: Include ergocalciferol, levothyroxine, enoxaparin, vancomycin, amlodipine, losartan, triamterene and hydrochlorothiazide combination, famotidine, ceftriaxone, diazepam, pantoprazole, p.r.n. analgesics and antiemetics. PAST MEDICAL HISTORY: As described above, hypertension, history of hypothyroidism, osteoarthritis. SOCIAL HISTORY: Former smoker. No ethanol. [place] [address] CONSULTATION Name: CHAYO HUI Room: [address]#: [id number] Admission: 09/08/19 Attend Phys: Chuck sethi Beresford Discharge: Date of : 60 Report #: [id number] FAMILY HISTORY: Noncontributory. REVIEW OF SYSTEMS: Otherwise, unremarkable 10-point review of systems. PHYSICAL EXAMINATION: GENERAL: She is in moderate distress secondary to the knee pain. She is generally lucid, reasonably well nourished. VITAL SIGNS: Temperature 98.4, pulse 83, respirations 18, blood pressure 139/70. SKIN: Warm, dry, no rashes. HEENT: Normocephalic. Extraocular muscles intact. NECK: Supple. LUNGS: Generally clear to auscultation bilaterally. HEART: Regular. Borderline tachycardic. I do not appreciate a murmur. ABDOMEN: Soft, nontender, nondistended. EXTREMITIES: Right knee was exposed. There is moderate to marked inflammatory changes. Any manipulation to all, there is light touch causes significant pain. GENITOURINARY: Deferred. RECTAL: Deferred. LABORATORY DATA: Blood cultures sterile thus far. CBC: White count of 15.4, H 12.9 and 36.7, platelets of 276 and 30% bands. Electrolytes: Sodium 140, potassium 3.4, chloride 104, bicarb is 25, anion gap of 11, BUN and creatinine 26 and 1.1, glucose of 165. Albumin 3, total protein 7.3. LFTs unremarkable. ASSESSMENT AND PLAN: Right knee septic arthritis. This seems to be postoperative issues subsequent to her arthroscopic procedure. Certainly would expect skin related sue with chronic draining aspect of the wound. Agree with coverage for Staphylococcus and Streptococcus primarily, see how she does clinically postop, await culture results. We will add incentive spirometry as well. We will follow. <ELECTRONICALLY SIGNED> By: Samuel Jackson MD 09/08/19 1314 1027 1046Joananth Jackson MD /nt
--- NOTE | 2019-09-08 16:00 | NUR ---
SPOKE WITH PT. SHE WAS ALERT AND ORIENTED. STATED SHE LIVES WITH HER . HE IS DISABLED BUT CAN HELP HER NEEDED. THEY ALSO TAKE CARE OF HIS 92 YO DAD WHO LIVES WITH THEM. 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. STARTED HAVING SEVERE PAIN IN R KNEE 09/06. WENT TO SURGERY TODAY FOR I&D. CULTURES ARE PENDING. SHE UNDERSTANDS RESULTS OF CX WILL DETERMINE ANTIBIOTICS AT DISCHARGE. NO USE OF DME AT HOME OR HX OF HH. SHE SAID KNEE FEELS MUCH BETTER AFTER SURGERY. CM WILL FOLLOW.
--- NOTE | 2019-09-08 17:53 | NUR ---
ASSUMED CARE OF PATIENT AT APPROX 1245. ALERT AND ORIENTED X4. VSS ON 2 LITERS 02. MINIMAL COMPLAINT OF PAIN MANAGED WITH ORAL NORCO. FLUIDS AND ANTIBIOTICS INFUSED ORDERED. NO OTHER COMPLAINTS THIS SHIFT. FALL PRECAUTIONS IN PLACE. CALL LIGHT WITHIN REACH. WILL CONTINUE WITH PLAN OF CARE.
[2019-09-08 19:00] VITALS: BP 133/64
[2019-09-08 20:12] VITALS: BP 98/58
[2019-09-09] VITALS: BP 104/60
[2019-09-09 04:00] VITALS: BP 109/64
[2019-09-09 04:11] LABS: HEMOGLOBIN 11.8 gm/dL (12.0-15.0); MCH 32.7 pg (26.0-34.0); MCHC 35.9 g/dL (28.0-37.0); MCV 91.1 fL (80.0-100.0); MPV 8.7 fl. (7.2-11.1); RBC 3.62 mil/uL (4.20-5.00); RDW-CV 12.8 % (10.5-14.5); WBC 8.4 thou/uL (4.0-11.0)
[2019-09-09 04:28] LABS: ALBUMIN 2.8 g/dL (3.4-5.0); CALCIUM 7.9 mg/dL (8.5-10.1); CREATININE 0.8 mg/dL (0.6-1.3); MAGNESIUM 1.7 mg/dL (1.8-2.4); POTASSIUM 3.4 mmol/L (3.5-5.1); TOTAL BILIRUBIN 0.6 mg/dL (<0.1-1.0); TOTAL PROTEIN 6.3 g/dL (6.4-8.2)
--- NOTE | 2019-09-09 05:17 | NUR ---
PAIN WELL MANAGED THIS SHIFT. SHE DID NOT REPORT ANY NEW WORSENING PAIN. CPAP DURING SLEEP AND 2L O2 OTHERWISE. ALERT AND ORIENTED. ZELAYA OUTPUT CLEAR AND YELLOW. TOLERATING FLUIDS AND DIET. RECEIVED ALL MEDS AND ABX SCHEDULED. SHE DID NOT REQUEST ANY ADDITIONAL PAIN MEDICATION. WILL CONTINUE TO FOLLOW PLAN OF CARE.
[2019-09-09 08:30] VITALS: BP 120/68
[2019-09-09 12:14] VITALS: BP 124/53
[2019-09-09 15:46] VITALS: BP 110/61
--- NOTE | 2019-09-09 16:52 | NUR ---
PATIENT ALERT AND ORIENTED X 4. VITAL SIGNS STABLE ON 2L NASAL CANULA. AFEBRILE. UP WITH ASSISTANCE, GAIT BELT, AND WALKER TO THE BATHROOM. IV PATENT AND SALINE LOCKED. PAIN BEING MANAGED WITH PO MEDICATION. DENIES NAUSEA AT THIS TIME. DRESSING TO RIGHT KNEE CLEAN, DRY, INTACT. HEMOVAC DRAIN IN PLACE AND DRAINING. FALL PRECAUTIONS IN PLACE AND BED ALARM ON. HOURLY ROUNDS MAINTAINED THROUGHOUT THE SHIFT. CALL LIGHT WITHIN REACH. NURSING WILL CONTINUE TO MONITOR.
[2019-09-09 18:06] LABS: BODY FLUID PROTEIN 3.4 g/dL (())
[2019-09-09 20:00] VITALS: BP 115/60
[2019-09-10] VITALS (8 sets, daily range): BP systolic 97–140; BP diastolic 42–63
[2019-09-10 04:08] LABS: HEMATOCRIT 31.8 % (37.0-47.0); HEMOGLOBIN 11.4 gm/dL (12.0-15.0); MCH 32.5 pg (26.0-34.0); MCHC 35.9 g/dL (28.0-37.0); MCV 90.6 fL (80.0-100.0); MPV 8.9 fl. (7.2-11.1); RBC 3.51 mil/uL (4.20-5.00); RDW-CV 12.9 % (10.5-14.5)
[2019-09-10 04:16] LABS: CALCIUM 8.2 mg/dL (8.5-10.1); CREATININE 0.9 mg/dL (0.6-1.3); MAGNESIUM 1.9 mg/dL (1.8-2.4); POTASSIUM 3.5 mmol/L (3.5-5.1)
--- NOTE | 2019-09-10 06:42 | NUR ---
Alert and oriented x 4. Acewrap dressing to rt knee dry and intact with hemovac in place. She has had pain med through the night, pain has been at 8 most of the night. She is up with stand by assist to the bathroom. She has slept intermitten;y
--- NOTE | 2019-09-10 11:50 | NUR ---
PATIENT ARRIVED BACK TO UNIT FROM PACU AT 1140. ALERT AND ORIENTED X 4. VITAL SIGNS STABLE ON 2L O2 NASAL CANULA. IV PATENT AND SALINE LOCKED. IV ANTIBIOTIC GIVEN IN PACU. DRESSING TO RIGHT KNEE CLEAN, DRY, INTACT. FALL PRECAUTIONS IN PLACE AND BED ALARM ON. NURSING WILL CONTINUE TO MONITOR.
[2019-09-10 14:20] LABS: SOURCE KNEE JOINT
--- NOTE | 2019-09-10 16:18 | OP ---
[address] [address] OPERATIVE REPORT Name: CHAYO HUI Room: [address] IN .R.#: [id number] Admission: 09/08/19 Attend Phys: Chuck Crooks Discharge: Date of : 60 Report #: [id number] THIS REPORT FOR: //name// cc: Rodrigo Andujar Steve T. DO ~ THIS REPORT FOR: //name// CC: Chuck Campbell DICTATED BY: Candido Biggs DO DATE OF SERVICE: 09/08/2019 PREOPERATIVE DIAGNOSIS: Septic arthritis, right knee. POSTOPERATIVE DIAGNOSIS: Septic arthritis, right knee. PROCEDURE PERFORMED: Right knee arthroscopic lavage and three compartment synovectomy. SURGEON: Cholo Hector DO SCALE BALANCER: Candido Biggs DO and Ravindra Tracey DO ANESTHESIA: General. ESTIMATED BLOOD LOSS: 15 mL. SPECIMENS: Synovial tissue for culture. DRAINS: One medium Hemovac. COMPLICATIONS: None. DISPOSITION: Stable to PACU. 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 She did present to the Emergency Department yesterday evening with increased pain and drainage from the knee. She was unable to bear weight. The knee was aspirated in the Emergency Department. Synovial fluid analysis consistent with septic arthritis of the right knee. Right knee arthroscopic irrigation and debridement was recommended for the patient. The risks, benefits, alternatives, complications were discussed and [place] [address] OPERATIVE REPORT Name: CHAYO HUI Room: [address] IN M.R.#: [id number] Admission: 09/08/19 Attend Phys: Chuck Crooks Discharge: Date of : 60 Report #: [id number] DESCRIPTION OF PROCEDURE: The patient was seen and examined in the preoperative holding area. The correct upper extremity was marked. Written consent was obtained. The patient was transferred to the operating room and placed supine on the operating table. She was given the benefit of general anesthesia. Right lower extremity was prepped and draped in the usual sterile fashion. Timeout was performed to verify the correct patient, procedure, and all were in agreement. Next, the previous arthroscopic portals were recreated and the arthroscope was inserted. The superolateral portal, that was previously used, was also recreated and a trocar was inserted. There was noted to be cass purulence from the knee joint itself upon introduction of the cannula. This fluid was sent for culture. A synovium tissue biopsy was taken also for culture. Next, the knee was thoroughly irrigated. There was noted to be 3 compartment synovitis and a synovectomy was performed with the arthroscopic shaver. Next, a medium Hemovac drain was placed through the superolateral portal. This was sewn into position. The knee was then drained of all fluid. Arthroscopic instruments were removed. The remaining portals were closed with nylon sutures in simple interrupted fashion. Sterile dressing was applied. The patient was then awakened from anesthesia and transferred to the PACU in stable condition. The patient tolerated the procedure well and no complications. <ELECTRONICALLY SIGNED> By: Cholo Hector DO 09/10/19 1618 1013 [id number] Hector DO /nt
--- NOTE | 2019-09-10 16:20 | OP ---
[address] [address] OPERATIVE REPORT Name: EZCHAYO F Room: [address] IN .R.#: [id number] Admission: 09/08/19 Attend Phys: Chuck Crooks Discharge: Date of : 60 Report #: [id number] THIS REPORT FOR: //name// cc: Rodrigo Andujar Steve T. DO THIS REPORT FOR: //name// CC: Chuck Campbell DICTATED BY: Michael Lovett DO DATE OF SERVICE: 09/10/2019 PREOPERATIVE DIAGNOSIS: Right knee septic arthritis. POSTOPERATIVE DIAGNOSIS: Right knee septic arthritis. PROCEDURE PERFORMED: Right knee arthroscopic irrigation and debridement with 3 compartments synovectomy. SURGEON: Wilfrid Cruz D.O. ASSISTANTS: 1. Vern Luong, PGY2. 2. Michael Lovett, PGY4. 3. Michael Esparza, PGY1. ANESTHESIA: General endotracheal. ESTIMATED BLOOD LOSS: 5 mL. COMPLICATIONS: None. CONDITION OF PATIENT: Stable to PACU. INTRAOPERATIVE FINDINGS: Upon entrance of the knee, no cass purulence was encountered. There was diffuse synovitis and coagulated blood, but no necrotic tissue or concerning signs for persistent infection. INDICATIONS FOR PROCEDURE: The patient is a pleasant 59-year-old female who had undergone a right knee arthroscopy by Dr. Sewell several weeks ago. She was doing well until a few days prior to her admission last week. Aspiration yielded a concern for septic arthritis. She underwent arthroscopic I and D by Dr. Hector on the . Given the cass purulence encountered in the joint, recommendation was made for repeat arthroscopic [place] [address] OPERATIVE REPORT Name: CHAYO HUI Room: [address] IN M.R.#: [id number] Admission: 09/08/19 Attend Phys: Chuck Crooks Discharge: Date of : 60 Report #: [id number] elected to undergo that procedure today. We again revisited the risks, complications, alternatives, risks including but not limited to damage to neurovascular structures, chondral damage from the infection, continuation of pain, dissemination of infection, continuation of infection, possible need for repeat surgery in the future and any other imponderables secondary to being taken back to the operative suite. She expressed understanding and wished to proceed. DESCRIPTION OF PROCEDURE: The patient was met in the preoperative bay where the correct site was marked. She was then taken back to the operative suite and placed in supine position on a well-padded table. She was given the benefit of general anesthesia. Right lower extremity was sterilely prepped and draped in normal standard fashion after being placed into a well-padded arthroscopic leg dong. The patient did have a pneumatic tourniquet applied to the right thigh that was ultimately not used through the duration of this procedure. Timeout was performed, which correct patient, side, site, procedure to be performed, and continued antibiotics in the forms of perioperative vancomycin was confirmed and agreed upon by all participation. The previous arthroscopic portals and super medial Hemovac site sutures were removed prior to the prep. The lateral portal was entered with the superomedial fluid inflow having been established. Diagnostic portion was begun. There was no cass purulence encountered through any of the trocar insertions or direct visualization of the knee. We did encounter diffuse synovitis and coagulated blood. No necrotic tissue or concerning signs for persistent infection was noted. A 3 compartments synovectomy was performed. The knee was lavaged with approximately 6 liters of normal saline. All instrument counts and sponge and needle counts were correct. All instruments were removed from the knee. The Hemovac drain was placed in the superomedial aspect of the knee. This was reapproximated with vertical mattress sutures. The portals were then reapproximated with simple interrupteds. The drain was not sewn into place. A sterile dressing with Xeroform, 4 x 4's, Kerlix, and a compressive ____ was applied. The patient was awoken from general anesthesia and taken to postanesthesia care unit in stable condition. Do not anticipate on the need for a repeat procedure to this individual's knee. We will certainly monitor her closely, but it is our hope with the arthroscopic I and D x 2 thus far coupled with her Infectious Disease management with her antibiotics, this will continue to improve clinically, but we will be monitoring closely. <ELECTRONICALLY SIGNED> By: Cholo Hector DO 09/10/19 1620 1022 [id number] Cruz DO /layne
--- NOTE | 2019-09-10 18:02 | NUR ---
PATIENT ALERT AND ORIENTED X 4. VITAL SIGNS STABLE ON 2L O2 NASAL CANULA. AFEBRILE. UP WITH ASSISTANCE TO THE BATHROOM WITH GAIT BELT AND WALKER. IV PATENT WITH ANTIBIOTIC INFUSING. PAIN BEING MANAGED WITH PO MEDICATION. DENIES NAUSEA AT THIS TIME. BULKY DRESSING IN PLACE TO RIGHT KNEE CLEAN, DRY, AND INTACT. HEMOVAC IN PLACE WITH MINIMAL TO NO DRAINAGE. FALL PRECAUTIONS IN PLACE AND BED ALARM ON. HOURLY ROUNDS MAINTAINED THROUGHOUT THE SHIFT. CALL LIGHT WITHIN REACH. NURSING WILL CONTINUE TO MONITOR.
[2019-09-11] VITALS: BP 101/60
[2019-09-11 04:00] VITALS: BP 108/56
--- NOTE | 2019-09-11 07:33 | NUR ---
Alert and oriented x 4. Rt knee acewrap dressing is dry and intact with hemovac in place. There hasn't been any drainage from it. Vitals have been stable. She has had cont pulse ox and been on roomair air O2 sat 95-99% on roomair she does use Cpap at night. She had pain meds at bedtime and this am. She up with stand by assist and walker to the bathroom. She slept well.
[2019-09-11 08:15] VITALS: BP 125/72
--- NOTE | 2019-09-11 10:35 | NUR ---
RIGHT BASILIC VESSEL ACCESSED FOR 4 [place] SINGLE LUMEN POWER PICC. LINE PRE-TRIMMED TO 41 CM AND ADVANCED TO THE ZERO DERRELL WITH NO RESISTANCE MET. UPPER ARM CIRCUMFERENCE ABOVE INSERTION SITE= 14 1/2". SHERLOCK MAGNET AND 3CG CONFIRMATION AT THE CAVOATRIAL JUNCTION APPRECIATED. GUIDEWIRE REMOVED, LINE FLUSHED AND INSERTION SITE DRESSED. REPORT GIVEN TO CAROLE FOSTER.
[2019-09-11 16:00] VITALS: BP 105/53
--- NOTE | 2019-09-11 18:19 | NUR ---
Pt AOx4, up with SBA to bathroom. Ambulates with gb and walker. Pt c/o pain managing with PO norco. Pt had PICC line placed today FRIDA single lumen, patent and draws. Pt is anxious of getting infection from PICC line, reassured. Pt is tolerating reg diet and receiving IV antibiotics, no adverse effects. Hourly rounding complete, will continue to monitor
[2019-09-11 19:51] VITALS: BP 136/71
--- NOTE | 2019-09-12 05:22 | NUR ---
PATIENT REPORTS RIGHT KNEE IS VERY STIFF AND SORE, WORKED WITH PT ON WEDNESDAY. SHE DID REQUEST HYDROCODONE 2X DURING SHIFT. HER PAIN RATED 5/10. SHE IS UP WITH WALKER TO RESTROOM. ROOM AIR, CPAP AT NIGHT. HEMOVAC NO LONGER HAS OUTPUT. THERE IS SOME DRAINAGE AROUND INCISION SITE. LYNNETTE WRAP STILL INTACT. RECEIVED ALL ABX AND MEDS SCHEDULED. WILL CONTINUE TO FOLLOW PLAN OF CARE.
[2019-09-12 08:20] VITALS: BP 116/59
--- NOTE | 2019-09-12 08:52 | NUR ---
LATE ENTRY FOR 09/10 AT 1000-SPOKE WITH PT. ABOUT OUTPT.ANTIBIOTICS. SHE HAD JUST GOTTEN HER PICC LINE. SHE WAS TEARFUL, STATING THEY TELL YOU ALL THE COMPLICATIONS THAT CAN GO WRONG AND IT SCARES YOU TO . SHE SAID SHE WOULD RATHER COME HERE DAILY FOR INFUSION INSTEAD OF GIVING THEM HERSELF AT HOME. WANTS TO MAKE SURE THIS IS COVERED BY INSURANCE. [place] [id number] [place] PRIOR [place]. MESSAGE LEFT FOR HER TO CALL CM BACK.
[2019-09-12] MEDS ORDERED: LIDODERM1 EACH TOP (10:06)
[2019-09-12] MEDS ORDERED: ULTRAM 50MG TAB50 MG PO (10:06)
[2019-09-12] MEDS ORDERED: LORCET 5-325 M1 EACH PO (10:06)
[2019-09-12 11:38] VITALS: BP 116/59
[2019-09-12] MEDS ORDERED: ROCEPHIN 11 GM/1001 IV (12:50)
[2019-09-12] MEDS ORDERED: ROCEPHIN IVPB (13:10)
--- NOTE | 2019-09-12 16:45 | NUR ---
CM CALLED [facility] [employer] [phone] TO GET OUTPT.INFUSION PRIOR AUTH'D. SPOKE WITH MIRELLA GONSALES -SHE SAID NO AUTH REQUIRED IF DONE AT A [facility] FACILITY. THEN HAD TO SPEAK WITH MALIKA/[employer] [phone]. SHE SAID LONG IT IS BILLED AN OUTPT.SERVICE SHOULD BE COVERED AT 100%. PT.INFORMED OF THE ABOVE AND THAT SCHEDULING WOULD CALL HER TO SET UP APPT. ON THE WEEKENDS COME TO ER FOR INFUSION. SHE VERBALIZED UNDERSTANDING.
--- NOTE | 2019-09-12 17:29 | NUR ---
PATIENT STARTED ON SCHED TRAMADOL AND LIDODERM PATCH IN PLACE TO RIGHT LEG. PATIENT DRESSING TO RIGHT LEG INTACT WITH LYNNETTE WRAP IN PLACE. RIGHT UPPER ARM PICC, ABX INFUSED ORDERED. PATIENT TO RECEIVE OUTPATIENT ABX, CM SET UP. PRN HYDROCODONE GIVEN X 2. UP WITH ASSISTANCE OF WALKER. VERBALIZES UNDERSTANDING OF PAPERWORK AND SCRIPTS. PATIENT TAKEN OUT VIA WHEELCHAIR WITH ALL BELONGINGS.
== END 2019-09-12 17:32 | disposition home or self-care (01) | DRG 486 ==
LOC: M.ERS 22:22 → M.ORTHSURG 09-08 00:20 → M.TBA-ER 09-08 00:20 → M.ORTHSURG 09-08 02:13
PROVIDERS: Emergency Medicine Emergency Medical Services; Internal Medicine; ADMIT Family Medicine; ATTEND Family Medicine
PROC: 0SBC4ZZ Excision of Right Knee Joint, Percutaneous Endoscopic Approach (ICD-10-PCS; principal; 2019-09-08)
PROC: 3E1U38Z Irrigation of Joints using Irrigating Substance, Percutaneous Approach (ICD-10-PCS; 2019-09-10)
PROC: 05HY33Z Insertion of Infusion Device into Upper Vein, Percutaneous Approach (ICD-10-PCS; 2019-09-11)
DX: M00.9 Pyogenic arthritis, unspecified (principal); R65.10 Systemic inflammatory response syndrome (SIRS) of non-infectious origin without acute organ dysfunction; I10 Essential (primary) hypertension; E03.9 Hypothyroidism, unspecified; Z20.828 Contact with and (suspected) exposure to other viral communicable diseases; Z88.6 Allergy status to analgesic agent; Z88.1 Allergy status to other antibiotic agents; Z88.8 Allergy status to other drugs, medicaments and biological substances; Z87.891 Personal history of nicotine dependence

== ENCOUNTER → 2019-09-13 | Outpatient (CLI) | payer OTHER ==
[~2019-09-13] MED LIST changes: +DIAZEPAM 5 MG5 M1 PO; +LIDODERM1 EACH TOP; +LORCET 5-325 M1 EACH PO; +NORVASC 2.5 MG2.5 M1 PO; +OMEPRAZOLE 20 M20 M1 PO; +ROCEPHIN 11 GM/1001 IV; +ROCEPHIN IVPB; +ULTRAM 50MG TAB50 MG PO
[2019-09-13 12:55] VITALS: BP 118/78
--- NOTE | 2019-09-13 14:12 | NUR ---
ARRIVED PER WHEELCHAIR. TRANSFERED SELF TO RECLINER. PICC LINE INTACT AND PATENT. DENIES ADVERSE REACTION TO MULTIPLE PRIOR INFUSIONS OF SAME. INFUSION COMPLETED AND TOLERATED WELL. DENIES QUESTIONS OR NEEDS AT DISCHARGE.
== END ==
LOC: M.INFUS 12:49
PROVIDERS: ATTEND Specialist
DX: M00.9 Pyogenic arthritis, unspecified (principal)

== ENCOUNTER → 2019-09-14 | Outpatient (CLI) | payer OTHER ==
[2019-09-14 13:00] VITALS: BP 109/40
--- NOTE | 2019-09-14 13:47 | NUR ---
ARRIVED PER WHEELCHAIR. TRANSFERED SELF TO RECLINER. PICC INTACT AND PATENT. DENEIS ADVERSE REACTION TO PRIOR INFUSIONS OF SAME. INFUSION COMPLETED AND TOLERATED WELL. PT WAITING IN INFUSION UNTIL APPOINTMENT WITH DR. MORAES AT 1450 SO SHE CAN KEEP LEG ELEVATED.
== END ==
LOC: M.INFUS 04:13
PROVIDERS: ATTEND Specialist
DX: M00.9 Pyogenic arthritis, unspecified (principal)

== ENCOUNTER → 2019-09-15 | Outpatient (CLI) | payer OTHER | LOC: M.INFUS 04:31 | DX: M00.9 Pyogenic arthritis, unspecified (principal) ==

== ENCOUNTER → 2019-09-16 | Outpatient (CLI) | payer OTHER | LOC: M.INFUS 12:39 | PROVIDERS: ATTEND Specialist | DX: M00.9 Pyogenic arthritis, unspecified (principal) ==

== ENCOUNTER → 2019-09-17 | Outpatient (CLI) | payer OTHER | LOC: M.INFUS 12:49 | PROVIDERS: ATTEND Specialist | DX: M00.9 Pyogenic arthritis, unspecified (principal) ==

== ENCOUNTER → 2019-09-18 | Outpatient (CLI) | payer OTHER ==
[2019-09-18 12:45] VITALS: BP 128/68
== END ==
LOC: M.INFUS 03:54
PROVIDERS: ATTEND Specialist
DX: M00.9 Pyogenic arthritis, unspecified (principal)

== ENCOUNTER → 2019-09-19 | Outpatient (CLI) | payer OTHER ==
[2019-09-19 12:55] VITALS: BP 117/61
[2019-09-19 14:10] LABS: ABSOLUTE BASOPHILS 0.1 thou/uL (0.0-0.2); ABSOLUTE EOSINOPHILS 0.1 thou/uL (0.0-0.7); ABSOLUTE LYMPHOCYTES 1.5 thou/uL (0.8-5.3); ABSOLUTE MONOCYTES 0.6 thou/uL (0.0-1.2); ABSOLUTE NEUTROPHILS 4.7 thou/uL (1.6-8.1); EOSINOPHILS 0.9 %; HEMATOCRIT 31.9 % (37.0-47.0); HEMOGLOBIN 11.5 gm/dL (12.0-15.0); LYMPHOCYTES 21.8 %; MCH 32.7 pg (26.0-34.0); MCHC 36.1 g/dL (28.0-37.0); MCV 90.4 fL (80.0-100.0); MONOCYTES 8.3 %; MPV 8.3 fl. (7.2-11.1); NUCLEATED RBCS 0 /100WBC; PLATELET COUNT* 330 thou/uL (150-400); RBC 3.53 mil/uL (4.20-5.00); RDW-CV 12.4 % (10.5-14.5); WBC 6.9 thou/uL (4.0-11.0)
[2019-09-19 14:18] LABS: ALBUMIN 2.9 g/dL (3.4-5.0); CALCIUM 8.6 mg/dL (8.5-10.1); CREATININE 0.9 mg/dL (0.6-1.3); POTASSIUM 3.2 mmol/L (3.5-5.1); TOTAL BILIRUBIN 0.3 mg/dL (<0.1-1.0); TOTAL PROTEIN 7.1 g/dL (6.4-8.2)
[2019-09-19 15:23] LABS: ESR (SEDRATE) 84 mm/hr (0-30)
== END ==
LOC: M.INFUS 04:21
PROVIDERS: ATTEND Specialist
DX: M00.9 Pyogenic arthritis, unspecified (principal)

== ENCOUNTER → 2019-09-20 | Outpatient (CLI) | payer OTHER | LOC: M.INFUS 05:27 | PROVIDERS: ATTEND Specialist | DX: M00.9 Pyogenic arthritis, unspecified (principal) ==

== ENCOUNTER → 2019-09-21 | Outpatient (CLI) | payer OTHER ==
[2019-09-21 12:45] VITALS: BP 120/87
--- NOTE | 2019-09-21 13:30 | NUR ---
ARRIVED PER WHEELCHAIR. TRANSFERED SELF TO RECLINER. PICC LINE INTACT AND PATENT. INFUSION COMPLETED AND TOELRATEAD WELL. PT DENEIS QUESTIONS OR NEEDS AT DISCHARGE.
== END ==
LOC: M.INFUS 04:27
PROVIDERS: ATTEND Specialist
DX: M00.9 Pyogenic arthritis, unspecified (principal)

== ENCOUNTER → 2019-09-22 | Outpatient (CLI) | payer OTHER ==
[2019-09-22 12:30] VITALS: BP 107/59
== END ==
LOC: M.INFUS 05:30
PROVIDERS: ATTEND Specialist
DX: M00.9 Pyogenic arthritis, unspecified (principal)

== ENCOUNTER → 2019-09-23 | Outpatient (CLI) | payer OTHER ==
[2019-09-23 14:08] VITALS: BP 105/56
[2019-09-23 14:44] VITALS: BP 105/53
== END ==
LOC: M.INFUS 08:00
PROVIDERS: ATTEND Specialist
DX: M00.9 Pyogenic arthritis, unspecified (principal)

== ENCOUNTER → 2019-09-24 | Outpatient (CLI) | payer OTHER ==
[2019-09-24 13:38] VITALS: BP 123/64
== END ==
LOC: M.INFUS 08:00
PROVIDERS: ATTEND Specialist
DX: M00.9 Pyogenic arthritis, unspecified (principal)

== ENCOUNTER → 2019-09-25 | Outpatient (CLI) | payer OTHER ==
[2019-09-25 13:15] VITALS: BP 132/74
== END ==
LOC: M.INFUS 09:22
PROVIDERS: ATTEND Specialist
DX: M00.9 Pyogenic arthritis, unspecified (principal)

== ENCOUNTER → 2019-09-26 | Outpatient (CLI) | payer OTHER ==
[2019-09-26 13:35] VITALS: BP 133/75
== END ==
LOC: M.INFUS 12:57
PROVIDERS: ATTEND Specialist
DX: M00.9 Pyogenic arthritis, unspecified (principal)

== ENCOUNTER → 2019-11-01 | Outpatient (CLI) | payer OTHER | LOC: M.MRI 16:00 | PROVIDERS: ATTEND Family Medicine | DX: S83.281A Other tear of lateral meniscus, current injury, right knee, initial encounter (principal); M25.462 Effusion, left knee; M17.11 Unilateral primary osteoarthritis, right knee; X58.XXXA Exposure to other specified factors, initial encounter; Y93.89 Activity, other specified; Y92.89 Other specified places as the place of occurrence of the external cause; Y99.8 Other external cause status ==

== ENCOUNTER → 2019-12-16 | Outpatient (CLI) | payer OTHER ==
[2019-12-16 11:01] LABS: ABSOLUTE EOSINOPHILS 0.1 thou/uL (0.0-0.7); ABSOLUTE LYMPHOCYTES 1.5 thou/uL (0.8-5.3); ABSOLUTE MONOCYTES 0.3 thou/uL (0.0-1.2); ABSOLUTE NEUTROPHILS 2.9 thou/uL (1.6-8.1); BASOPHILS 0.8 %; EOSINOPHILS 1.9 %; HEMATOCRIT 40.2 % (37.0-47.0); HEMOGLOBIN 13.9 gm/dL (12.0-15.0); LYMPHOCYTES 30.3 %; MCH 30.6 pg (26.0-34.0); MCHC 34.5 g/dL (28.0-37.0); MCV 88.8 fL (80.0-100.0); MONOCYTES 6.2 %; MPV 8.2 fl. (7.2-11.1); NUCLEATED RBCS 0 /100WBC; PLATELET COUNT* 249 thou/uL (150-400); POLYS 60.8 %; RBC 4.53 mil/uL (4.20-5.00); RDW-CV 12.9 % (10.5-14.5); WBC 4.8 thou/uL (4.0-11.0)
[2019-12-16 11:02] LABS: URINE BILIRUBIN NEGATIVE (Negative); URINE BLOOD 1+ (Negative); URINE CLARITY CLEAR; URINE COLOR YELLOW; URINE GLUCOSE-RANDOM NEGATIVE (Negative); URINE KETONES NEGATIVE (Negative); URINE LEUKOCYTES NEGATIVE (Negative); URINE NITRITE NEGATIVE (Negative); URINE PROTEIN NEGATIVE (Negative); URINE SPECIFIC GRAVITY 1.015 (1.005-1.030); URINE UROBILINOGEN 0.2 E.U./dl (0.2-1.0)
[2019-12-16 11:10] LABS: BACTERIA 1-9 Few /HPF (None Seen); MUCUS None Seen strn/LPF (None Seen); SQUAMOUS 0-3 Few /LPF (0-3); URINE RBC 3-10 Few /HPF (0-2); URINE WBC 0-5 Rare /HPF (0-5)
[2019-12-16 11:11] LABS: CASTS None Seen /LPF (None Seen); CRYSTALS None Seen /LPF (None Seen)
[2019-12-16 11:16] LABS: ALBUMIN 3.9 g/dL (3.4-5.0); ALKALINE PHOSPHATASE 114 U/L (46-116); ANION GAP 8 mmol/L (7-16); BUN 17 mg/dL (7-18); CALCIUM 9.1 mg/dL (8.5-10.1); CHLORIDE 104 mmol/L (98-107); CHOLESTEROL 229 mg/dL (<200); CO2 31 mmol/L (21-32); CREATININE 0.7 mg/dL (0.6-1.3); GLUCOSE 98 mg/dL (70-99); HDL CHOLESTEROL 55 mg/dL (>40); LDL CHOLESTEROL 154 mg/dL (<100); SGOT 26 U/L (15-37); SGPT 35 U/L (30-65); SODIUM 143 mmol/L (136-145); TC:HDL 4.2 Ratio (Not establshd); TOTAL BILIRUBIN 0.6 mg/dL (<0.1-1.0); TOTAL PROTEIN 7.8 g/dL (6.4-8.2); TRIGLYCERIDE 104 mg/dL (<150); VLDL 21 mg/dL (<40)
[2019-12-16 11:21] LABS: SERUM ASSESSMENT Moderate Lipemia
[2019-12-16 12:02] LABS: ESR (SEDRATE) 15 mm/hr (0-30)
== END ==
LOC: M.LAB 10:21
DX: E03.9 Hypothyroidism, unspecified (principal); I10 Essential (primary) hypertension

== ENCOUNTER → 2020-01-18 | Outpatient (CLI) | payer OTHER | LOC: M.RAD 15:12 | PROVIDERS: ATTEND Orthopaedic Surgery | DX: M17.11 Unilateral primary osteoarthritis, right knee (principal); M25.561 Pain in right knee; M25.461 Effusion, right knee ==

== ENCOUNTER → 2020-05-08 | Outpatient (CLI) | payer OTHER ==
[2020-05-08 09:19] LABS: HEMATOCRIT 38.3 % (37.0-47.0); HEMOGLOBIN 13.2 gm/dL (12.0-15.0); MCH 30.9 pg (26.0-34.0); MCHC 34.5 g/dL (28.0-37.0); MCV 89.6 fL (80.0-100.0); MPV 8.6 fl. (7.2-11.1); RBC 4.28 mil/uL (4.20-5.00); RDW-CV 12.2 % (10.5-14.5); WBC 5.6 thou/uL (4.0-11.0)
[2020-05-08 09:22] LABS: URINE BILIRUBIN NEGATIVE (Negative); URINE BLOOD 1+ (Negative); URINE CLARITY CLEAR; URINE COLOR YELLOW; URINE GLUCOSE-RANDOM NEGATIVE (Negative); URINE KETONES NEGATIVE (Negative); URINE LEUKOCYTES NEGATIVE (Negative); URINE NITRITE NEGATIVE (Negative); URINE PROTEIN NEGATIVE (Negative); URINE UROBILINOGEN 0.2 E.U./dl (0.2-1.0)
[2020-05-08 09:28] LABS: ALBUMIN 3.7 g/dL (3.4-5.0); ALKALINE PHOSPHATASE 118 U/L (46-116); ANION GAP 10 mmol/L (7-16); BUN 25 mg/dL (7-18); CALCIUM 9.2 mg/dL (8.5-10.1); CHLORIDE 105 mmol/L (98-107); CHOLESTEROL 219 mg/dL (<200); CO2 27 mmol/L (21-32); CREATININE 0.8 mg/dL (0.6-1.3); GLUCOSE 103 mg/dL (70-99); HDL CHOLESTEROL 49 mg/dL (>40); LDL CHOLESTEROL 153 mg/dL (<100); POTASSIUM 3.6 mmol/L (3.5-5.1); SERUM ASSESSMENT Clear; SGOT 21 U/L (15-37); SGPT 37 U/L (30-65); SODIUM 142 mmol/L (136-145); TC:HDL 4.5 Ratio (Not establshd); TOTAL BILIRUBIN 0.6 mg/dL (<0.1-1.0); TOTAL PROTEIN 7.4 g/dL (6.4-8.2); TRIGLYCERIDE 88 mg/dL (<150); VLDL 18 mg/dL (<40)
[2020-05-08 09:37] LABS: MUCUS 0-3 Light strn/LPF (None Seen); SQUAMOUS 4-10 Moderate /LPF (0-3)
[2020-05-08 09:38] LABS: BACTERIA 1-9 Few /HPF (None Seen); CASTS None Seen /LPF (None Seen); CRYSTALS None Seen /LPF (None Seen); URINE RBC 3-10 Few /HPF (0-2); URINE WBC 0-5 Rare /HPF (0-5)
[2020-05-10 08:08] LABS: ANA INTERPRETATION Negative (Negative)
== END ==
LOC: M.LAB 08:50
PROVIDERS: ATTEND Family Medicine
DX: Z12.31 Encounter for screening mammogram for malignant neoplasm of breast (principal); E03.9 Hypothyroidism, unspecified; I10 Essential (primary) hypertension; E55.9 Vitamin D deficiency, unspecified; Z68.35 Body mass index [BMI] 35.0-35.9, adult; Z11.52 Encounter for screening for COVID-19

== ENCOUNTER → 2020-05-15 | Outpatient (CLI) | payer OTHER | LOC: M.RAD 05-13 09:01 | PROVIDERS: ATTEND Family Medicine | DX: N63.20 Unspecified lump in the left breast, unspecified quadrant (principal) ==

== ENCOUNTER → 2020-10-17 | Outpatient (CLI) | payer OTHER | LOC: M.MRI 13:05 | PROVIDERS: ATTEND Orthopaedic Surgery | DX: S83.281D Other tear of lateral meniscus, current injury, right knee, subsequent encounter (principal); S83.241D Other tear of medial meniscus, current injury, right knee, subsequent encounter; M17.11 Unilateral primary osteoarthritis, right knee; M25.461 Effusion, right knee; M25.861 Other specified joint disorders, right knee; X58.XXXD Exposure to other specified factors, subsequent encounter ==

== ENCOUNTER → 2020-10-25 | Outpatient (CLI) | payer OTHER | LOC: M.MRI 06:52 | PROVIDERS: ATTEND Family Medicine | DX: S83.242A Other tear of medial meniscus, current injury, left knee, initial encounter (principal); M25.462 Effusion, left knee; M17.12 Unilateral primary osteoarthritis, left knee; X58.XXXA Exposure to other specified factors, initial encounter; Y93.89 Activity, other specified; Y92.89 Other specified places as the place of occurrence of the external cause; Y99.8 Other external cause status ==

== ENCOUNTER → 2020-11-26 | Outpatient (CLI) | payer OTHER ==
[2020-11-26 13:25] LABS: ABSOLUTE EOSINOPHILS 0.1 thou/uL (0.0-0.7); ABSOLUTE LYMPHOCYTES 1.8 thou/uL (0.8-5.3); ABSOLUTE MONOCYTES 0.3 thou/uL (0.0-1.2); ABSOLUTE NEUTROPHILS 3.3 thou/uL (1.6-8.1); BASOPHILS 0.8 %; EOSINOPHILS 1.3 %; HEMATOCRIT 37.2 % (37.0-47.0); LYMPHOCYTES 32.2 %; MCH 31.4 pg (26.0-34.0); MCHC 35.1 g/dL (28.0-37.0); MCV 89.5 fL (80.0-100.0); MONOCYTES 5.9 %; MPV 8.1 fl. (7.2-11.1); NUCLEATED RBCS 0 /100WBC; PLATELET COUNT* 251 thou/uL (150-400); POLYS 59.8 %; RBC 4.15 mil/uL (4.20-5.00); RDW-CV 12.6 % (10.5-14.5); WBC 5.5 thou/uL (4.0-11.0)
[2020-11-26 13:40] LABS: CHOLESTEROL 237 mg/dL (<200); HDL CHOLESTEROL 57 mg/dL (>40); LDL CHOLESTEROL 154 mg/dL (<100); SERUM ASSESSMENT Clear; TC:HDL 4.2 Ratio (Not establshd); TRIGLYCERIDE 132 mg/dL (<150); VLDL 26 mg/dL (<40)
[2020-11-26 13:52] LABS: ALBUMIN 4.1 g/dL (3.4-5.0); CREATININE 0.7 mg/dL (0.6-1.3); POTASSIUM 4.2 mmol/L (3.5-5.1); TOTAL BILIRUBIN 0.8 mg/dL (<0.1-1.0); TOTAL PROTEIN 7.8 g/dL (6.4-8.2)
== END ==
LOC: M.LAB 12:52
PROVIDERS: ATTEND Anesthesiology
DX: Z01.812 Encounter for preprocedural laboratory examination (principal); Z20.822 Contact with and (suspected) exposure to COVID-19; I10 Essential (primary) hypertension; E03.9 Hypothyroidism, unspecified; E55.9 Vitamin D deficiency, unspecified; R53.83 Other fatigue; E87.6 Hypokalemia

== ENCOUNTER → 2021-01-10 | Outpatient (CLI) | payer OTHER | LOC: M.NUC 12-23 12:07 | PROVIDERS: ATTEND Family Medicine | DX: K30 Functional dyspepsia (principal) ==